=== PATIENT | male | born 1960 ===

== ENCOUNTER 2017-04-24 09:39 | Emergency (ER) | payer SELFPAY ==
[2017-04-24 10:33] VITALS: BP 128/89
--- NOTE | 2017-04-25 18:49 | UC ---
Sri Lazo Nilda, scribed for Cipriano Gorman MD on 04/24/17 at 1052 . Complaint Male HPI - HPI Summary HPI Summary: This patient is a 57 year old M [place] [facility] [place] chief complaint of possible UTI for the past three days. The patient rates the pain 0/10 in severity. Symptoms aggravated by urination and alleviated by nothing. Patient reports constant urinary frequency, burning with urination, fever, body aches, chills, and dizziness. - History of Current Complaint Chief Complaint: UCGU Stated Complaint: BURNING AND FREQUENT URINATION Time Seen by Provider: 04/24/17 10:44 Hx Obtained From: Patient Onset/Duration: Sudden Onset, Lasting Days, Still Present Timing: Constant Pain Intensity: 0 Pain Scale Used: 0-10 Numeric Character: Burning Aggravating Factor(s): Voiding Alleviating Factor(s): Nothing Associated Signs And Symptoms: Positive: Fever - Allergies/Home Medications Allergies/Adverse Reactions: Allergies Allergy/AdvReac Type Severity Reaction Status Date / Time No Known Allergies Allergy Verified 04/24/17 10:33 Home Medications: Home Medications Cakvyei-Lbbuzdzltffvc-Hzblilhm [Excedrin Migraine 250-250-65 mg] 2 tab PO Q6HR PRN 04/24/17 [History Confirmed 04/24/17] PMH/Surg Hx/FS Hx/Imm Hx Cardiovascular History: Hypertension - resolved after weight loss GI/ History: Other Other GI/ History: Enlarged prostate 20 years ago but pt states resolved - Surgical History Surgical History: None - Family History Known Family History: Positive: Other - parkinson's - Social History Alcohol Use: Daily Alcohol Amount: 1 drink q daily Substance Use Type: None Smoking Status (MU): Never Smoked Tobacco Review of Systems Constitutional: Fever, Chills Genitourinary: Frequency, Other - burning with urination Musculoskeletal: Myalgia Neurological: Other - dizziness All Other Systems Reviewed And Are Negative: Yes Physical Exam Triage Information Reviewed: Yes Vital Signs: Initial Vital Signs Temp 97.7 F 04/24/17 10:28 Pulse 102 04/24/17 10:28 Resp 16 04/24/17 10:28 BP 128/89 04/24/17 10:28 Pulse Ox 100 04/24/17 10:28 Vital Signs Reviewed: Yes - Additional Comments VITAL SIGNS: Reviewed. GENERAL: Patient is a well developed and nourished M who is lying comfortable in the stretcher. Patient is not in any acute respiratory distress. HEAD AND FACE: Normocephalic EYES: PERRLA, EOMI x 2. EARS: Hearing grossly intact. MOUTH: Oropharynx within normal limits. NECK: Supple, trachea is midline, no adenopathy, no JVD, no carotid bruit. CHEST: Symmetric, no tenderness at palpation LUNGS: Clear to auscultation bilaterally. No wheezing or crackles. CVS: Regular rate and rhythm, S1 and S2 present, no murmurs or gallops appreciated. ABDOMEN: Soft, non-tender. Bowel sounds are normal. No abdominal abnormal pulsations. RECTAL EXAM: Enlarged tender prostate. EXTREMITIES: Full ROM in all major joints, no edema, no cyanosis or clubbing. NEURO: Alert and oriented x 3. No acute neurological deficits. Speech is normal and follows commands. SKIN: Dry and warm Diagnostics - EKG Cardiac Rate: NL Cardiac Rhythm: Sinus: Normal - 95 bpm, no ST elevation, nl axis Re-Evaluation - Re-Evaluation First Eval Re-Evaluation Time: 11:40 Comment: Pt states he is sexually active with only one person and is in a monogamous relationship. Complaint Male Course/Dx - Course Course Of Treatment: This patient is a 57 year old M [place] [facility] [place] chief complaint of possible UTI for the past three days. The patient rates the pain 0/10 in severity. Symptoms aggravated by urination and alleviated by nothing. Patient reports of constant urinary frequency, burning with urination, fever, body aches, chills, and dizziness. UA reveals Urine protein 2+, Trace ketone, and Trace blood. An EKG reveals NSR 95 bpm, no ST elevation, nl axis. UA is negative for UTI. Patient still with dysuria and urinary frequency. He has Hx of Prostatitis for which I did a rectal exam and he had an enlarge mild tender prostate. I offer the patient the ED but patient declined. I will be placing the patient in Levaquin for treatment of prostatitis. He was strongly advised if he continues wit same or worsening symptoms he should go immediately to the ED for further assessment. Otherwise he should f/u with PCP in 3 days. He understands and agrees. GC and Blanca CX sent. Pt is stable and will be D/ C with Dx of prostatitis and a prescription for Levaquin. I discussed all the findings and test results with the patient. Pt was instructed to return to the urgent care or go to ER immediately if any of the symptoms return or worsens. Plan of care was discussed with the patient and pt understands and agrees. All questions were answered to patient satisfaction. There were no further complaints or concerns. - Differential Dx/Diagnosis Differential Diagnosis/HQI/PQRI: Prostatitis, Urinary Tract Infection Provider Diagnoses: Prostatitis Discharge - Discharge Plan Condition: Stable Disposition: HOME Prescriptions: Levofloxacin TAB* [Levaquin TAB*] 500 mg PO DAILY #10 tab Patient Education Materials: Prostatitis (ED) Referrals: [facility] [place] [facility]ERR[facility] [Outside] No Primary Care Phys,NOPCP [Primary Care Provider] - Additional Instructions: - If he continues to febrile despite antibiotics or pain increases please go immediately to ED or return to the UC for further assessment. - Tylenol or Ibuprofen for fever - Increase fluid intake - Take medications as indicated. The documentation as recorded by the Sri kilpatrick Nilda accurately reflects the service I personally performed and the decisions made by me, Cipriano Gorman MD.
== END 2017-04-24 11:59 | disposition home or self-care (01) ==
LOC: UCEAST 09:39
DX: N41.9 Inflammatory disease of prostate, unspecified (principal); R50.9 Fever, unspecified; M79.1 Myalgia; R42 Dizziness and giddiness
CPT/HCPCS: 81003; 87086; 87491; 87591; 93005; 99202; G0463